=== PATIENT | male | born 1970 | race Caucasian/White ===

== ENCOUNTER 2023-08-08 06:44 | Day surgery (SDC) | payer OTHER ==
[~2023-08-08] VITALS: Ht 175.3 cm; Wt 99.8 kg
[2023-08-08] MEDS ORDERED: fentaNYL citrate 0.05 MG/ML VIAL ONE (07:28)
[2023-08-08] MEDS ORDERED: LIDOCAINE 2% 100 MG/5 ML UJET TP ONE (07:28)
[2023-08-08] MEDS ORDERED: SIMETHICONE 40 MG/0.6 ML PO PRN (08:20)
[2023-08-08] MEDS ORDERED: SIMETHICONE 40 MG/0.6 ML ONE (08:34)
== END 2023-08-08 09:05 | disposition home or self-care (01) ==
LOC: MMU 06:44 → MOR 06:44
PROVIDERS: ATTEND Internal Medicine Gastroenterology
DX: Z12.11 Encounter for screening for malignant neoplasm of colon (principal); K63.5 Polyp of colon; K57.30 Diverticulosis of large intestine without perforation or abscess without bleeding; I10 Essential (primary) hypertension; E78.5 Hyperlipidemia, unspecified; F32.A Depression, unspecified; J44.9 Chronic obstructive pulmonary disease, unspecified; F17.210 Nicotine dependence, cigarettes, uncomplicated; Z85.09 Personal history of malignant neoplasm of other digestive organs; Z79.899 Other long term (current) drug therapy
CPT/HCPCS: 45385; J3010